=== PATIENT | female | born 1975 ===

== ENCOUNTER → 2020-12-02 | Day surgery (SDC) | payer OTHER ==
[~2020-12-02] MED LIST: LEVOTHYROXINE25 MCG PO; NORVASC2.5 M1 PO
== END | disposition home or self-care (01) ==
LOC: ADM 11-30 10:00 → CIR.AMB 07:00
PROVIDERS: ATTEND Surgery
DX: D24.1 Benign neoplasm of right breast (principal); Z20.822 Contact with and (suspected) exposure to COVID-19